=== PATIENT | female | born 1970 | race Caucasian/White ===

== ENCOUNTER → 2020-07-24 12:52 | Emergency (ER) | payer OTHER, SELFPAY ==
[2020-07-24 12:54] VITALS: BP 162/96; PULSE 84; RESP 16; TEMP 36.7; O2SAT 97; BMI 37.6
--- NOTE | 2020-07-24 13:17 | RAD_ITS ---
STUDY: X-RAY - LEFT SHOULDER REASON FOR EXAM: Female, 50 years old. Fall, pain TECHNIQUE: 2 view(s) of the shoulder. COMPARISON: None. FINDINGS: Normal glenohumeral articulation. Normal acromioclavicular joint. Normal acromion. Normal humeral head and visualized proximal humerus. The soft tissue structures are unremarkable. Normal visualized pulmonary apex. RAD/Shoulder min 2 Views IMPRESSION: Normal x-ray examination of the shoulder. Electronically Signed: Abelino Matthews, at 14:03 EDT , Service support ,
--- NOTE | 2020-07-24 13:17 | RAD_ITS ---
STUDY: X-RAY - LEFT ELBOW REASON FOR EXAM: Female, 50 years old. Fall, pain TECHNIQUE: 3 view(s) of the elbow. COMPARISON: None. FINDINGS: Normal visualized humerus, radius and ulna. Normal radiocapitellar and ulnotrochlear articulations. The soft tissue structures are unremarkable. RAD/Elbow min 3 Views IMPRESSION: Normal x-ray examination of the elbow. Electronically Signed: Abelino Matthews, at 14:03 EDT , Service support ,
--- NOTE | 2020-07-24 13:17 | ED.DCSUM_ITS ---
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 She notes pain to the anterior left shoulder and the posterior left elbow. She states she has a headache. She denies hitting her head. She denies any leg symptoms. She notes some upper back discomfort. No loss of consciousness. Past Medical History - Allergies and Home Meds Allergies/Adverse Reactions: Allergies Penicillins [PCN] Allergy (Verified 07/24/20 12:53) Rash Sulfa (Sulfonamide Antibiotics) Allergy (Verified 07/24/20 12:53) Rash Primary Care Physician: NOT,DEFINED [NON-STAFF] - Prior records reviewed: Yes Surgical History: noncontributory Lives: Spouse/ Significant Other Smoking Status: Never smoker Drugs: None Review of Systems General: Denies: Chills, Fever, Sweats Eyes: Denies: Visual changes - bilaterally, Diplopia ENT: Denies: Rhinorrhea, Sore throat Cardiovascular: Denies: Chest pain, Palpitations Respiratory: Denies: Dyspnea, Cough, Dyspnea on exertion Gastrointestinal: Denies: Abdominal pain, Nausea, Vomiting, Diarrhea, Melena, Hematochezia Genitourinary: Denies: Dysuria, Hematuria, Frequency Musculoskeletal: Reports: Back pain, Extremity Pain Skin: Denies: Rash, Wounds Neurological: Denies: Headache, Weakness, Numbness Physical Exam Vital Signs/Narrative: Vital Signs Temp Pulse Resp BP Pulse Ox 07/24/20 12:54 98.1 F 84 16 162/96 H 97 Inital Vital Signs reviewed: Yes General: Well nourished, Well developed, Obese, No Acute Distress Head: Normocephalic, Atraumatic Eyes: Perrl, EOMI ENT: Moist mucous membranes, No rhinorrhea Neck: Supple, Nontender Cardiovascular: Regular rate, Regular rhythm, No murmurs Respiratory: No distress, CTA bilaterally, Chest nontender Abdomen: Soft, Nontender, Nondistended, Normal bowel sounds Back: Normal Inspection, - - upper thoracic paraspinal muscle ttp Extremities: No edema, - - Patient complains of tenderness to the anterior left shoulder posterior left elbow. Limited range of motion due to pain Skin: Normal color, No rash Neurological: Alert, Oriented x3, Cranial nerves II-XII grossly intact, Normal Strength, Normal Sensation Psychological: Normal affect, Normal Mood Diagnostic/Tx/Re-eval - Medical Decision Making X-rays of the shoulder and elbow were negative for fracture. Patient received 2 [place] for pain with sleeping. To be discharged home with conservative treatment Tylenol Motrin. Follow-up with Workmen's Comp. 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
--- NOTE | 2020-07-24 13:23 | ED.RN ---
[facility] needed.
[2020-07-24] MEDS: HYDROcodone Bitartrate/Apap 5/325 Tablet PO (13:47)
[2020-07-24 14:51] VITALS: BP 124/69; PULSE 77; RESP 15; O2SAT 98
== END | disposition home or self-care (01) ==
PROVIDERS: Emergency Provider Emergency Medicine
DX: S50.02XA Contusion of left elbow, initial encounter (principal); S40.012A Contusion of left shoulder, initial encounter; S29.012A Strain of muscle and tendon of back wall of thorax, initial encounter; E66.9 Obesity, unspecified; W01.0XXA Fall on same level from slipping, tripping and stumbling without subsequent striking against object, initial encounter; Y93.89 Activity, other specified; Y92.009 Unspecified place in unspecified non-institutional (private) residence as the place of occurrence of the external cause; Y99.0 Civilian activity done for income or pay
CPT/HCPCS: 73030; 73080; 99284